=== PATIENT | male | born 2000 | race Caucasian/White ===

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

== ENCOUNTER 2023-01-11 08:54 | Day surgery (SDC) | payer MEDICAID ==
[~2023-01-11] VITALS: Ht 175.3 cm; Wt 63.6 kg
[~2023-01-11 08:54] MED LIST: ONDA4TAB6 PO
[2023-01-11] MEDS ORDERED: MIDAZolam 1 MG/ML 5ML VIAL ONE (09:18)
[2023-01-11] MEDS ORDERED: fentaNYL/PF 50MCG/1 ML 2ML syringe ONE (09:18)
[2023-01-11] MEDS ORDERED: diphenhydrAMINE 50 mg/ml inj ONE (09:56)
[2023-01-11 10:20] VITALS: BP 103/58
[2023-01-11 10:30] VITALS: BP 97/57
[2023-01-11 10:40] VITALS: BP 102/58
[2023-01-11 11:46] VITALS: BP 137/85
== END 2023-01-11 11:07 | disposition home or self-care (01) ==
LOC: GI LAB 08:54
PROVIDERS: ATTEND Internal Medicine Gastroenterology
DX: K52.9 Noninfective gastroenteritis and colitis, unspecified (principal); K51.00 Ulcerative (chronic) pancolitis without complications
CPT/HCPCS: 45380; 99152; 99153; J2250; J3010; J7030; Z7512; A4620; J1200